=== PATIENT | male | born 1980 | race Hispanic/Latino ===

== ENCOUNTER 2021-11-29 06:22 | Day surgery (SDC) | payer BC ==
[2021-11-29 07:27] LABS: INR 0.96 (0.87-1.13); Partial Thromboplastin Time 31.2 Sec. (24.2-36.6)
[2021-11-29 07:29] LABS: Basophils # (Auto) 0.1 K/mm3 (0.0-0.1); Basophils % (Auto) 0.9 % (0.0-1.8); Blood Urea Nitrogen 15 mg/dL (9-20); Calcium 9.3 mg/dL (8.4-10.2); Eosinophils # (Auto) 0.2 K/mm3 (0.0-0.4); Eosinophils % (Auto) 1.9 % (0.0-4.3); Hematocrit 40.1 % (35.5-45.6); Hemoglobin 13.9 gm/dl (11.8-15.2); Hemolysis Index 65; Lymphocytes # (Auto) 3.2 K/mm3 (1.2-5.4); Lymphocytes % (Auto) 35.4 % (13.4-35.0); Mean Corpuscular HGB Conc 35 % (32-34); Mean Corpuscular Volume 87 fl (84-94); Monocytes # (Auto) 0.7 K/mm3 (0.0-0.8); Monocytes % (Auto) 8.1 % (0.0-7.3); Platelet Count 278 K/mm3 (140-440); Red Blood Count 4.62 M/mm3 (3.65-5.03); Red Cell Distribution Width 13.6 % (13.2-15.2)
[2021-11-29 07:31] LABS: BUN/Creatinine Ratio 21
[2021-11-29] MEDS ORDERED: MIDAZOLAM 2 MG/2 ML INJ ONE (07:44)
[2021-11-29] MEDS ORDERED: propofoL 200 MG/20 ML VIAL IV ONE ×3 (07:45)
[2021-11-29] MEDS ORDERED: ePHEDrine SULFATE 50 MG/1 ML INJ ONE (07:46)
[2021-11-29] MEDS ORDERED: SODIUM CHLORIDE 0.9% 1000 ML 1,000 ML IV SCH (08:00)
[2021-11-29] MEDS ORDERED: BENZOCAINE 20% TOP SPRAY 0.5 ML UNIT DOSE MM NR (08:00)
--- NOTE | 2021-11-29 08:05 | Anesthesia Day of Surgery ---
Anesthesia Day of Surgery - Day of Surgery Patient Examined: Yes Patient H&P Reviewed: Yes Patient is NPO: Yes
--- NOTE | 2021-11-29 08:05 | Anesthesia Consultation ---
Anesthesia Consult and Med Hx Date of service: 11/29/21 - Airway Anesthetic Teeth Evaluation: Good ROM Head & Neck: Adequate Mental/Hyoid Distance: Adequate Mallampati Class: Class II Intubation Access Assessment: Probably Good - Pre-Operative Health Status ASA Pre-Surgery Classification: ASA3 Proposed Anesthetic Plan: MAC - Pulmonary Hx Smoking: Yes (former smoker quit 20yrs ago) Hx Asthma: Yes (no inhaler use in >1yr) Hx Respiratory Symptoms: No (COVID 10/21 with no respiratory sypmtoms) Hx Sleep Apnea: Yes (+ CPAP) - Cardiovascular System Hx Hypertension: Yes Hx Heart Attack/AMI: No Hx Percutaneous Transluminal Coronary Angioplasty (PTCA): No Hx Cardia Arrhythmia: Yes (a-fib on Eliquis, last dose 11/28/21) Hx Pacemaker: No Hx Internal Defibrillator: No Hx Valvular Heart Disease: No (normal TTE 10/2021) - Central Nervous System CVA: No - Endocrine Hx Renal Disease: No Hx Liver Disease: No Hx Insulin Dependent Diabetes: No Hx Non-Insulin Dependent Diabetes: No (pre-DM) Hx Thyroid Disease: No - Other Systems Hx Obesity: Yes (BMI 37) - Additional Comments Anesthesia Medical History Comments: No hx anesthetic complications. Had MOHINDER w/ cardioversion in the past under MAC/sedation without complications.
[2021-11-29] MEDS ORDERED: LIDOCAINE MPF (2%) 20 MG/1 ML VIAL 5 ML ONE (09:22)
[2021-11-29] MEDS ORDERED: PHENYLEPHRINE/NS 1,000 MCG/10 ML SYRINGE (OR USE) IV ONE (09:22)
[2021-11-29 10:57] VITALS: BP 116/39
--- NOTE | 2021-11-29 11:30 | Post Anesthesia Evaluation ---
- Post Anesthesia Evaluation Patient Participated: Yes Airway Patent: Yes Stable Respiratory Function: Yes Nausea/Vomiting: No Temp > 96.8F: Yes Pain Manageable: Yes Adequeate Hydration: Yes Anesthesia Complications: No
--- NOTE | 2021-11-30 13:19 | Electrocardiograph Report ---
[facility] Test Date: 2021-11-29 Test Time: 07:26:25 Pat Name: BERONICA BRASWELL Department: Room: Gender: M [employer]: BERNIE : 1980 Requested By: DESIREE MANCUSO Order Number: [id number] Reading MD: Woodrow Ortiz Measurements Intervals [place] Rate: 66 P: [place]: QRS: 46 QRSD: 90 T: 43 QT: 378 QTc: 398 Interpretive Statements Atrial fibrillation Low voltage, extremity leads No previous ECG available for comparison Electronically Signed On 11-30-2021 13:18:55 EST by Woodrow Ortiz
== END 2021-11-29 11:20 | disposition home or self-care (01) ==
LOC: CATHLABREC 06:22
PROVIDERS: ATTEND Internal Medicine
DX: I48.91 Unspecified atrial fibrillation (principal); E78.00 Pure hypercholesterolemia, unspecified; I10 Essential (primary) hypertension; J45.909 Unspecified asthma, uncomplicated; G47.30 Sleep apnea, unspecified; E11.9 Type 2 diabetes mellitus without complications; Z20.822 Contact with and (suspected) exposure to COVID-19; Z90.49 Acquired absence of other specified parts of digestive tract; Z88.8 Allergy status to other drugs, medicaments and biological substances; Z79.899 Other long term (current) drug therapy; Z87.891 Personal history of nicotine dependence; Z98.890 Other specified postprocedural states
CPT/HCPCS: 36415; 80048; 85025; 85610; 85730; 93005; 93010; 93312; 93320; 93325; J2250; J2370; J2704; J3490; J7030; U0003; 92960; J7120; Q0162